=== PATIENT | male | born 1970 | race Two or more races ===

== ENCOUNTER 2024-04-18 08:48 | Emergency (ER) | payer SELFPAY ==
[2024-04-18] VITALS (10 sets, daily range): BP systolic 108–129; BP diastolic 68–89; PULSE 70–91; BMI 25.1
[2024-04-18 09:45] LABS: % Basophils 0.3 % (0-2); % Eosinophils 0.1 % (0-6); % Immature Granulocytes 0.4 % (0-0.5); % Lymphocytes 5.4 % (20.5-51.1); % Monocytes 4.6 % (1.7-9.3); % Neutrophils 89.2 % (42.2-75.2); Absolute Lymphocytes 0.6 10^3/uL (1.2-3.4); Absolute Monocytes 0.5 10^3/uL (0.1-0.6); Absolute Neutrophils 9.3 10^3/uL (1.4-6.5); Hematocrit 42.3 % (39.0-52.0); Hemoglobin 14.5 g/dL (13.0-18.0); Mean Corp Hgb Conc. 34.3 g/dL (33.0-37.0); Mean Corpuscular Hgb 30.5 pg (27.0-31.0); Mean Corpuscular Volume 89.1 fL (80.0-94.0); Mean Platelet Volume 10.3 fL (7.4-10.4); Nucleated Red Blood Cells % 0 % (-); Platelet Count 194 10^3/uL (130-400); Red Blood Cell Count 4.75 10^6/uL (4.70-6.10); Red Cell Dist. Width 12.6 % (11.5-14.5); White Blood Cell Count 10.4 10^3/uL (4.8-10.8)
[2024-04-18 10:09] LABS: ALT (SGPT) 26 U/L (0-50); AST (SGOT) 28 U/L (17-59); Albumin 5.1 g/dl (3.5-5.0); Alkaline Phosphatase 77 U/L (38-126); Blood Urea Nitrogen 11 mg/dl (9-20); Calcium 9.4 mg/dl (8.4-10.2); Carbon Dioxide 26 mmol/L (22-30); Chloride 100 mmol/L (98-107); Glucose 144 mg/dl (70-99); Potassium 4.2 mmol/L (3.5-5.1); Sodium 136 mmol/L (135-145); Total Bilirubin 0.7 mg/dl (0.2-1.3); Total Protein 7.7 g/dl (6.3-8.2); eGFR > 60.00
[2024-04-18 10:20] LABS: Troponin I < 0.012 ng/ml
--- NOTE | 2024-04-18 12:15 | EDRN ---
Pt states he was in BR and became dizzy then attempted to leave BR and passed out for just a couple of seconds. Pt hit his head and his face. Pt has swollen and bruised L eye, swollen shut on exam. Pt has R lower broken teeth, swelling of R face and
2.5 cm lac to under side of chin.
--- NOTE | 2024-04-18 12:22 | EDRN ---
Orthostatic VS done in room. Pt denied any dizziness w/ position changes though on standing HR increased from 75-98 and was 106 on sitting back down on stretcher. BP showed no significant change. Pt to BR post orthostatic vs.
--- NOTE | 2024-04-18 12:45 | EDRN ---
Dr. Dunaway in room w/pt at this time.
--- NOTE | 2024-04-18 13:25 | EDRN ---
Dr. Dunaway in room w/ pt.
[2024-04-18] MEDS: TYLENOL 1000 MG PO (13:28)
--- NOTE | 2024-04-18 13:41 | ED.GENMED ---
History of Present Illness
General
Chief Complaint: Fainting/Passed Out
Source: patient
Exam Limitations: none
Time Seen by Provider: 04/18/24 11:29
Nursing documentation reviewed up to this point in time: agreed with
History of Present Illness
History of Present Illness:
Patient presents to ED after passing out, after he had urinated in the morning, and was walking back to his bed. Patient reports feeling lightheaded prior to passing out. Patient was attended to immediately by his family members. Patient presents
with bruising and swelling noted over his left eye along with right jaw pain, as well as chin laceration. Denies headache. Denies blurred vision. Denies loss of sensation or weakness. Denies nausea or vomiting. Of note, patient reports having
had 2 additional episodes of similar passing out experience, after urination. Patient otherwise is healthy, and does not take any medications daily.
Review of Systems
Review of Systems
Allergies reviewed?: Yes
All Other Systems: ROS reviewed and negative except as documented in HPI and ROS
Constitutional: Reports no symptoms
Respiratory: Reports no symptoms
Cardiac: Reports syncope
ABD/GI: Reports no symptoms
Musculoskeletal: Reports other (jaw pain)
Skin: Reports no symptoms
Neurological: Reports dizzy
Phy Exam
Physical Exam
Physical Exam:
Physical Exam
General: mild painful distress, not acutely ill. afebrile
Head: eomi. left periorbital swelling/ecchymosis noted.
Neck: supple. normal range of motion.
Heart: s1/s2 regular rate and rhythm, no murmur. equal radial pulses.
Lungs: no acute respiratory distress. clear bilaterally
Abdomen: normal bowel sounds. not tender
Neuro: alert and oriented x 3. no focal neurological deficits
Skin: an approx 3cm linear superficial laceration noted over lower chin, without active bleeding. an approx 4cm superficial, linear laceration of lateral aspect of tongue, not thru-thru, without active bleeding
Psychiatric: well kept. interactive and cooperative
Extremities: no edema. no calf tenderness.
Course
Orders/Labs/Results
Orders:
Orders
04/18/24 09:01
ECG [Electrocardiogram (*1)] Urgent
Reason for Study: Syncope
Head wo Contrast CT [CT Head W/o Iv Contrast] Urgent
Comment:
Reason For Exam: fall, syncope
EKG- Treatment ONCE
04/18/24 09:25
Complete Blood Count/With Diff Urgent
Comprehensive Metabolic Panel Urgent
Troponin I Urgent
04/18/24 12:58
CT Facial Bones W/o Iv Contras Urgent
Comment:
Reason For Exam: trauma to right side of face w swelling
04/18/24 12:59
Orthostatic VS- Treatment ONCE
04/18/24 13:25
Acetaminophen [Tylenol] 1,000 mg PO NOW STA
Abnormal Lab Results
04/18/24
09:25
Absolute Neuts (auto) 9.3 H 10^3/uL
(1.4-6.5)
Absolute Lymphs (auto) 0.6 L 10^3/uL
(1.2-3.4)
Neutrophils % 89.2 H %
(42.2-75.2)
Lymphocytes % 5.4 L %
(20.5-51.1)
Creatinine 0.6 L mg/dL
(0.7-1.3)
Glucose 144 H mg/dl
(70-99)
Albumin 5.1 H g/dl
(3.5-5.0)
04/18/24 09:25
04/18/24 09:25
Vital Signs
Initial and Last Documented VS:
Initial Vital Signs
Temp Pulse Resp BP Pulse Ox
98.5 F 88 18 129/83 96
04/18/24 08:56 04/18/24 08:56 04/18/24 08:56 04/18/24 08:56 04/18/24 08:56
Last Documented Vital Signs
Temp Pulse Resp BP Pulse Ox
98.5 F 70 20 112/82 98
04/18/24 08:56 04/18/24 16:00 04/18/24 12:25 04/18/24 16:00 04/18/24 16:00
Procedures
Laceration Closure
Lower Chin:
Status of Wound: clean
Size of Wound in cm: 3
Description of Wound Edges: sharp
Preparation: cleaned with SurClens
Anesthesia: 1% Lidocaine with epi
Revision/Debridement: routine- no revision
Type of Closure: single layer closure
Skin Closure Material: 5-0 nylon
Number of sutures: 4
Cheek:
Status of Wound: clean
Size of Wound in cm: 4
Description of Wound Edges: sharp
Revision/Debridement: routine- no revision
Type of Closure: single layer closure
Skin Closure Material: 5-0 vicryl
Number of sutures: 2
Additional information:
Linear, vertical laceration of lateral asked of tongue, approximated with placement of 2, 5-0 Vicryl sutures
MDM/Problems Addressed
MDM/Problems Addressed:
Wound well-approximated with placement sutures. Advised PCP follow-up for suture removal.
Discussed with on-call neurology, , regarding CT head findings. Feels that patient does not need any acute intervention or evaluation, as findings are likely congenital or chronic. However, in light of patient's presentation, does
recommend urgent outpatient neurology follow-up.
Discussed with on-call OMFS, Dr. Burns, regarding mandibular fracture. Feel the patient can be discharged home at this time, with office follow-up with him on Saturday.
Patient and spouse expressed understanding at time of discharge, with treatment plan, including outpatient evaluation with referred neurology and OMFS service.
Patient otherwise is hemodynamically stable and neurologically intact, at time of discharge. Advised Tylenol/Motrin for pain relief, along with ice application for forehead/periorbital swelling, as well as soft diet until reevaluation
*EKG
Interpreted by ED Provider?: Yes
EKG Intrepretation Date: 04/18/24
Interpretation: normal
Heart Rate: 70
Rate: normal
Rhythm: sinus
Patterson: normal axis
*Critical Care Note
Total Time (30-74mins, 75-104mins- exclusive of procedures): Not Applicable
ED Attending Note
-
Portions of this chart may have been created with voice recognition software.� Occasional wrong word or��sound alike� substitutions may have occurred due to the inherent limitations of voice recognition software.
Discharge Plan
Departure
Patient Disposition: Home (Routine Discharge)
Date of Disposition: 04/18/24
Time of Disposition: 15:49
Patient with high blood pressure during this ER visit?: Yes
Condition: Good
Discharge Problem:
Vasovagal syncope, Chin laceration, Fracture of jaw
Instructions: Jaw Fracture (DC), Vasovagal Response (DC), Stitches - ED discharge instructions
Referrals:
Gregor Haywood MD [Active] -
Jhon Burns DMD, MD [Active] -
UNKNOWN - PT DOES,NOT KNOW [Family Provider] -
Activity Restrictions/Additional Instructions:
As discussed, please follow-up with referred oral maxillary facial surgeon and neurologist for further evaluation and treatment. Your sutures will need to be removed in 7 to 10 days.
Interventions
Interventions:
*Risk Screen - Suicide Last Done: 04/18/24 12:17
*General Assessment Last Done: 04/18/24 12:17
*Neglect/Abuse Screening Last Done: 04/18/24 12:17
ED- Fall Risk Assessment Last Done: 04/18/24 12:17
*ED COVID-19 Vaccine History Last Done: 04/18/24 12:17
*Nursing Disposition Last Done: 04/18/24 16:30
ED- Cardiac Assessment Last Done: 04/18/24 12:20
ED- Neurological Assessment Last Done: 04/18/24 12:20
Discharge Date and Time
Discharge Date/Time: 04/18/24 16:30
Print Language: MOZAMBICAN
--- NOTE | 2024-04-18 15:52 | EDRN ---
is working on getting CD of CTs done in ER at this time per Dr. Dunaway's request.
--- NOTE | 2024-04-18 16:20 | EDRN ---
Pt received radiology CD prior to discharge.
== END 2024-04-18 16:30 | disposition home or self-care (01) ==
LOC: EMR 08:48
PROVIDERS: Emergency Medicine; EMERGENCY PHYSICIAN Emergency Medicine
DX: S01.81XA Laceration without foreign body of other part of head, initial encounter (principal); S02.611A Fracture of condylar process of right mandible, initial encounter for closed fracture; R55 Syncope and collapse; W19.XXXA Unspecified fall, initial encounter; S01.512A Laceration without foreign body of oral cavity, initial encounter
CPT/HCPCS: 99285; 41252; 12013; 70450; 70486; 80053; 84484; 85025; 93005